=== PATIENT | female | born 1945 | race African-American/Black ===

== ENCOUNTER 2024-03-26 18:16 | Inpatient (IN) | payer MEDICARE, OTHER ==
[~2024-03-26] VITALS: Ht 142.2 cm; Wt 95.2 kg
[2024-03-26] MEDS ORDERED: NS 1,000 ML IV ONE (18:45)
[2024-03-26] MEDS ORDERED: Ondansetron 4 MG/2 ML VIAL IV ONE (18:45)
[2024-03-26 20:50] LABS: HEMOGLOBIN 10.2 g/dl (12.5-16.0); MEAN CELL VOLUME 98 fl (80.0-100.0); MEAN CORPUSCULAR HEMOGLOBIN 30 pg (27-31); MEAN CORPUSCULAR HGB CONC 31 g/dl (33.0-37.0); MEAN PLATELET VOLUME 10.6 fl (7.4-10.4); RED BLOOD COUNT 3.35 M/mm3 (4.10-5.30); REDCELL DISTRIBUTION WIDTH-CV 22.6 % (11.5-14.5)
[2024-03-26 20:55] LABS: HEMATOCRIT 32.8 % (37.0-47.0); INR 1.4 (0.8-3.0); PROTHROMBIN TIME 15.3 SECONDS (9.7-12.8)
[2024-03-26 20:56] LABS: ALBUMIN 2.7 g/dL (3.4-4.8); CREATININE, serum 0.49 mg/dL (0.57-1.11); PLATELET COUNT 47 K/mm3 (130-400); POTASSIUM 3.7 mEq/L (3.5-4.5); TOTAL PROTEIN 5.3 g/dl (6.2-8.1)
[2024-03-26 21:32] LABS: BAND 30 % (0-10); LYMPHOCYTE 12 % (20.0-51.0); METAMYELOCYTE 3 % (0-0); NEUTROPHILS 52 % (42.0-75.2); NUCLEATED RED BLOOD CELL 6 (0-6)
[2024-03-26 21:33] LABS: HYPOCHROMIA 3+; POLYCHROMASIA 1+
[2024-03-26 21:34] LABS: ANISOCYTOSIS 3+; PLATELET ESTIMATE DECREASED (NORMAL); POIKILOCYTOSIS 2+; SCHISTOCYTES 2+
[2024-03-26 21:35] LABS: OVALOCYTES 1+; TEAR DROP CELLS 1+
[2024-03-26] MEDS ORDERED: LR 1,000 ML IV SCH (22:45)
[2024-03-26] MEDS ORDERED: Ondansetron 4 MG/2 ML VIAL IV PRN (22:45)
[2024-03-26 23:15] LABS: PH 5.5 (5.0-8.5); URINE APPEARANCE CLEAR (CLEAR/HAZY); URINE BLOOD TRACE (NEGATIVE); URINE COLOR YELLOW (YELLOW); URINE GLUCOSE NEGATIVE (NEGATIVE); URINE KETONE 1+ (NEGATIVE); URINE NITRATE NEGATIVE (NEGATIVE); URINE PROTEIN(semi-quant) 2+ (NEGATIVE)
[2024-03-26 23:31] LABS: URINE WBC 0-2 /hpf (0-2)
[2024-03-26 23:32] LABS: MUCOUS PRESENT (NOT PRESENT); URINE BACTERIA MODERATE /hpf (NONE SEEN); URINE RBC NONE SEEN /hpf (0-2)
[2024-03-26 23:34] LABS: COLLECTION METHOD CATHETER
[2024-03-27] VITALS (8 sets, daily range): BP systolic 112–136; BP diastolic 79–81; PULSE 71–97; TEMP 97.4–98.1
[2024-03-27 00:34] LABS: CLOSTRIDIUM DIFF A/B NEG
[2024-03-27] MEDS ORDERED: LOPRESSOR 225 MG/TAB PO (01:14)
[2024-03-27] MEDS ORDERED: LIPITOR 40MG TA40 MG PO (01:14)
[2024-03-27] MEDS ORDERED: XALATAN EYE DROPS OU (01:16)
[2024-03-27] MEDS ORDERED: NORVASC 10MG10 MG PO (01:17)
[2024-03-27] MEDS ORDERED: CALCIUM 600-D 61 TAB PO (01:18)
[2024-03-27] MEDS ORDERED: PROTONIX 40MG T40 MG PO (01:19)
[2024-03-27] MEDS ORDERED: K-DUR20 MEQ PO (01:20)
[2024-03-27] MEDS ORDERED: ERGOCALCIFER50000 IU PO (01:22)
[2024-03-27] MEDS ORDERED: PREDNISONE50 MG PO (01:23)
[2024-03-27] MEDS ORDERED: Morphine 4 MG/ML VIAL IV PRN (06:45)
[2024-03-27] MEDS ORDERED: PREDNISONE PO SCH (08:00)
[2024-03-27] MEDS ORDERED: Latanoprost 0.005% Ophth Soln 2.5 ML BOTTLE OP SCH (09:00)
[2024-03-27] MEDS ORDERED: amLODIPine 10 MG TAB PO SCH (09:00)
[2024-03-27] MEDS ORDERED: Calcium Carb/Vit D3 500 mg-5 mcg(200 Units) TAB PO SCH (09:00)
[2024-03-27] MEDS ORDERED: Pantoprazole 40 MG in NS 10 ML IV SCH (09:00)
[2024-03-27] MEDS ORDERED: Metoprolol Tartrate 25 MG TAB PO SCH (09:00)
--- NOTE | 2024-03-27 09:28 | NUR ---
PATIENT ARRIVED TO FLOOR AT 0800 FROM ED.VSS. ADMISION , ASSESSMENT AND MED REC COMPLETED. PATIENT CURRENTLY HAS NO N/V. NO PAIN REPORTED AT THIS TIME. ALL MORNING MEDS GIVEN ORDERED. CALL LIGHT IN REACH AND PATIENT STATES DAUGHTER WILL ARRIVE SOON TO BE BY BEDSIDE.
--- NOTE | 2024-03-27 10:40 | NUR ---
BUCHANAN CHATHETER REMOVED. 10CC REMOVED FROM CATHETER BALLOON AND 700ML OF URINE EMPTIED FROM BUCHANAN BEG. PATIENT TOLERATED WELL AND BEIF WAS PLACED ON PATIENT FOR INCONTIANCE.
--- NOTE | 2024-03-27 11:13 | NUR ---
workers compensation claims assistant met with patient to discuss discharge planning. Patient is currently at [facility] for rehab but previously lived in [place] with her daughter, Nuno P# [phone], and son in [place]. PCP is Ariana Lyon, Pharmacy is [facility] on [address] [facility]. No issues affording medications. Patient verified insurance is Medicare A and B and for Life. Patient believes her daughter is her DPOA-HC. DME is walker, wheelchair (but does not normally use) and oxygen in the evening. Patient reports she has a CPAP and an oxygen concentrator that she received through [employer]. Patient reported to need assistance with dressing and sometimes help in the restroom with pulling her pants up. Patient would like to return to [facility] for her continued rehab at time of discharge. ARTI contacted Tito, quality improvement coordinator (rn) at [facility], whom confirmed patient was there for rehab but the family is not holding her room. Tito reported they should be able to accept patient back when she is medically ready for discharge. ARTI contacted patient's daughter, Nuno, whom confirmed they are not holding the room due to the cost but would like patient to return to [facility] at time of discharge. Nuno confirmed that patient has been working on completing a DPOA-HC but needs to initial and sign the forms still. Patient has two other daughters, one in [place], one in [place] and a son that lives in [place], [place]. ARTI secure emailed clinical updates to Tito at [facility]. Discharge plan: [facility] - [facility]
[2024-03-27 14:40] LABS: MEAN CELL VOLUME 98 fl (80.0-100.0); MEAN CORPUSCULAR HGB CONC 31 g/dl (33.0-37.0); RED BLOOD COUNT 2.88 M/mm3 (4.10-5.30); REDCELL DISTRIBUTION WIDTH-CV 22.1 % (11.5-14.5)
[2024-03-27 14:49] LABS: HEMATOCRIT 28.2 % (37.0-47.0); HEMOGLOBIN 8.8 g/dl (12.5-16.0); MEAN CORPUSCULAR HEMOGLOBIN 31 pg (27-31)
[2024-03-27 14:53] LABS: PLATELET COUNT 42 K/mm3 (130-400)
[2024-03-27 14:57] LABS: CALCIUM 8.4 mg/dL (8.4-10.2); CREATININE, serum 0.51 mg/dL (0.57-1.11)
[2024-03-27 15:00] LABS: POTASSIUM 2.9 mEq/L (3.5-4.5)
[2024-03-27] MEDS ORDERED: Potassium Bicarbonate/Citrate 20 MEQ Effervescent TAB PO SCH (15:15)
--- NOTE | 2024-03-27 15:38 | NUR ---
SW participated in multidisciplinary team meeting to discuss patient's progress and discharge plan. The discharge plan is for patient to return to [facility]. Team members in agreement with this plan. Discharge plan: [facility]
[2024-03-27 15:40] LABS: BAND 56 % (0-10); LYMPHOCYTE 7 % (20.0-51.0); METAMYELOCYTE 3 % (0-0); NEUTROPHILS 30 % (42.0-75.2); NUCLEATED RED BLOOD CELL 5 (0-6)
[2024-03-27 15:42] LABS: PLATELET ESTIMATE DECREASED (NORMAL)
[2024-03-27 15:43] LABS: HYPOCHROMIA 2+
[2024-03-27 15:44] LABS: ANISOCYTOSIS 3+
[2024-03-27] MEDS ORDERED: Magnesium Sulfate 4% 50 ML IV ONE (16:30)
--- NOTE | 2024-03-27 18:45 | NUR ---
awake sitting up in bed eating supper, bedside shift report received from JOSE G Ferraro
--- NOTE | 2024-03-27 20:00 | NUR ---
resting in bed looking at TV, rolled to side and only has smear of BM on chux, was able to see very small opening above anus, rectal tube in place and has small amount liquid brown stool in bag, has brusing all across chest and under right breast, she states this has been there since she was in [facility] a few weeks ago, has INT to right neck and PICC to right upper arm, abdomen is very large and round, lifted pannus and this is dry and no redness noted, repositioned to right side, cardiopulmonary in assisting with setting up her CPAP, denies pain or needs at this time,
[2024-03-27] MEDS ORDERED: Atorvastatin 40 MG TAB PO SCH (21:00)
--- NOTE | 2024-03-27 22:29 | NUR ---
incontinent of liquid bowel movement and incontinent care provided, cardiopulmonary in and CPAP now on
[2024-03-28] VITALS (13 sets, daily range): BP systolic 105–139; BP diastolic 74–86; PULSE 63–82; TEMP 97.4–98.3
--- NOTE | 2024-03-28 01:30 | NUR ---
lab in and blood drawn, at this time has not been incontinent of stool,
[2024-03-28] MEDS ORDERED: Potassium Chloride 100 ML IV SCH (02:15)
--- NOTE | 2024-03-28 03:35 | NUR ---
incontinent care provided, repositioned to left side
--- NOTE | 2024-03-28 06:15 | NUR ---
had large amount liquid stool at this time, rectal tube remains in place but does not drain well, incontinent care provided and she tolerates well
[2024-03-28 06:27] LABS: MEAN CELL VOLUME 97 fl (80.0-100.0); MEAN CORPUSCULAR HGB CONC 32 g/dl (33.0-37.0); MEAN PLATELET VOLUME 12.4 fl (7.4-10.4); RED BLOOD COUNT 2.68 M/mm3 (4.10-5.30); REDCELL DISTRIBUTION WIDTH-CV 22.1 % (11.5-14.5)
[2024-03-28 06:29] LABS: HEMATOCRIT 25.9 % (37.0-47.0); HEMOGLOBIN 8.2 g/dl (12.5-16.0); MEAN CORPUSCULAR HEMOGLOBIN 31 pg (27-31)
[2024-03-28 06:31] LABS: PLATELET COUNT 36 K/mm3 (130-400)
[2024-03-28 06:55] LABS: CALCIUM 8.3 mg/dL (8.4-10.2); CREATININE, serum 0.45 mg/dL (0.57-1.11); POTASSIUM 3.2 mEq/L (3.5-4.5)
--- NOTE | 2024-03-28 07:01 | NUR ---
bedside shift report given to JOSE G Acevedo
[2024-03-28 07:03] LABS: ANISOCYTOSIS 3+; BAND 32 % (0-10); LYMPHOCYTE 15 % (20.0-51.0); NEUTROPHILS 49 % (42.0-75.2); NUCLEATED RED BLOOD CELL 1 (0-6); PLATELET ESTIMATE DECREASED (NORMAL)
[2024-03-28 11:35] LABS: COLLECTION METHOD CATHETER
[2024-03-28] MEDS ORDERED: Potassium Bicarbonate/Citrate 20 MEQ Effervescent TAB PO SCH (12:00)
[2024-03-28 12:06] LABS: URINE APPEARANCE TURBID (CLEAR/HAZY); URINE BLOOD 3+ (NEGATIVE); URINE COLOR ORANGE (YELLOW); URINE GLUCOSE NEGATIVE (NEGATIVE); URINE KETONE NEGATIVE (NEGATIVE); URINE NITRATE NEGATIVE (NEGATIVE); URINE PROTEIN(semi-quant) 2+ (NEGATIVE)
[2024-03-28 12:25] LABS: URINE RBC >50 /hpf (0-2); URINE WBC 0-2 /hpf (0-2)
--- NOTE | 2024-03-28 14:49 | NUR ---
Hearing Specialist sent clinical updates via secure email to Tito [employer] at [facility].
--- NOTE | 2024-03-28 17:30 | NUR ---
ASSISTED PT WITH [facility], PT HAS LOOSE STOOLS WITH RECTAL TUBE. LEAKING AROUND TUBE. BUTTOX AND COCCYX REDDENED. BARRIER CREAM APPLIED. CONTACTED , PT REPORTS PAIN AT THE RECTUM. PO PAIN MED ORDERED. PT REFUSED IV MORPHINE.
[2024-03-28] MEDS ORDERED: oxyCODONE 5 MG TAB PO PRN (18:00)
--- NOTE | 2024-03-28 18:09 | NUR ---
PT DECIDED AGAINST PO KARL FOR RETAL PAIN. SHE WILL WAIT FOR NOW AND REQUEST LATER. PAIN IS INTERMITENT.
--- NOTE | 2024-03-28 20:35 | NUR ---
pt is a&ox4 resting in bed. vss. meds given and assessment complete. pt reports discomfort from rectal tube, there is a large amount of stool around tube due to leakage. full bed change provided and pt turned to right side. snow to dd w cloudy yellow urine output. pt on 1L nasal cannula. PICC to MESFIN flushes well w good blood return. fall precautions in place. no needs at this time. call light in reach.
[2024-03-29] VITALS (7 sets, daily range): BP systolic 125–156; BP diastolic 76–94; PULSE 69–72; TEMP 96–97.9
[2024-03-29 06:17] LABS: MEAN CELL VOLUME 97 fl (80.0-100.0); MEAN CORPUSCULAR HGB CONC 31 g/dl (33.0-37.0); MEAN PLATELET VOLUME 12.2 fl (7.4-10.4); RED BLOOD COUNT 2.72 M/mm3 (4.10-5.30)
[2024-03-29 06:30] LABS: CALCIUM 8.4 mg/dL (8.4-10.2); CREATININE, serum 0.47 mg/dL (0.57-1.11); POTASSIUM 3.8 mEq/L (3.5-4.5)
[2024-03-29 06:49] LABS: HEMATOCRIT 26.5 % (37.0-47.0); HEMOGLOBIN 8.1 g/dl (12.5-16.0); MEAN CORPUSCULAR HEMOGLOBIN 30 pg (27-31)
[2024-03-29 06:50] LABS: PLATELET COUNT 39 K/mm3 (130-400)
[2024-03-29 07:12] LABS: BAND 21 % (0-10); LYMPHOCYTE 15 % (20.0-51.0); NEUTROPHILS 61 % (42.0-75.2); NUCLEATED RED BLOOD CELL 3 (0-6)
[2024-03-29 07:13] LABS: PLATELET ESTIMATE DECREASED (NORMAL)
--- NOTE | 2024-03-29 08:00 | NUR ---
PT SLEEPING IN BED WITH CPAP. AWOKE PT. ORIENTED X4. ASSESSMENT COMPLETE. REMOVED CPAP, APPLIED NC, 1L. MORNING MEDS GIVEN. BLE EDEMA NOTED. LUE EDEMA NOTED. REPORTS PAIN IN ANUS R/T RECTAL TUBE. NO OTHER COMPLAINTS AT THIS TIME. FALL PRECAUTIONS IN PLACE. CALL LIGHT IN REACH.
--- NOTE | 2024-03-29 09:40 | NUR ---
REMOVED RECTAL TUBE WITH NO COMPLICATIONS. PROVIDED [facility], APPLIED BARRIER CREAM.
--- NOTE | 2024-03-29 10:00 | NUR ---
PT HAD INCONTINENT BM, ASSISTED WITH [facility], APPLIED BARRIER CREAM. CHANGED GOWN.
[2024-03-29] MEDS ORDERED: AMOXICILLIN 8751 TAB PO (11:36)
--- NOTE | 2024-03-29 12:20 | NUR ---
PICC line removed by this nurse. See PICC removal documentation.
--- NOTE | 2024-03-29 15:20 | NUR ---
PROVIDED [facility] PRIOR TO TRANSPORT. INCONTINENT OF STOOL. GAVE REPORT TO TRANSPORT CREW, PROVIDED THEM WITH ALL OF PT DISCHARGE PAPERWORK. NO COMPLAINTS OR CONCERNS AT THIS TIME.
--- NOTE | 2024-03-29 16:31 | NUR ---
ARTI participated in rounds this morning with hospitalist, Dr. Harper. Patient appropriate for medical discharge. ARTI provided clinical updates to [employer] Technical Lead Senior Developer, Tito at [facility]. ARTI informed Tito that discharge appropriate. Rhianna Hernandez, RN sociology research assistant at [facility] provided roller picker time at 1pm. ARTI confirmed. ARTI sent discharge summary, active and discontinued medications via secure email to Tito at [facility]. Rhianna contacted this SW at roughly 1:05 pm informing that patient is bed bound and requires a gurnee for transport. Rhianna stated that her transportation department has now left the hospital and directed ARTI to contact EMS. ARTI set up EMS transport scheduled for 3pm. Hospitalist Dr. Harper signed off as well as patient's nurse, who will provide directly to EMS at time of roller picker. Discharge Plan: SNF at [facility]
[2024-04-02] MEDS ORDERED: Ergocalciferol 1.25 MG (50,000 UNITS) CAPSULE PO SCH (09:00)
== END 2024-03-29 15:20 | disposition home or self-care (01) | DRG 606 ==
LOC: COL.ER 18:16 → SURG 03-27 06:41
PROVIDERS: Emergency Medicine; Internal Medicine; Nurse Practitioner Family; Physician Assistant; ADMIT Hospitalist
DX: M79.3 Panniculitis, unspecified (principal); R53.2 Functional quadriplegia; D61.818 Other pancytopenia; E87.20 Acidosis, unspecified; Z68.43 Body mass index [BMI] 50.0-59.9, adult; I10 Essential (primary) hypertension; E78.5 Hyperlipidemia, unspecified; E66.01 Morbid (severe) obesity due to excess calories; G47.33 Obstructive sleep apnea (adult) (pediatric); Z90.12 Acquired absence of left breast and nipple; M81.0 Age-related osteoporosis without current pathological fracture; M19.90 Unspecified osteoarthritis, unspecified site; K21.9 Gastro-esophageal reflux disease without esophagitis; H40.9 Unspecified glaucoma; D64.9 Anemia, unspecified; D69.6 Thrombocytopenia, unspecified; I89.0 Lymphedema, not elsewhere classified; Z86.73 Personal history of transient ischemic attack (TIA), and cerebral infarction without residual deficits; E87.6 Hypokalemia
CPT/HCPCS: A4314; C1751; J2470; J2543; J3475; J3480; J7030; J7120; J7512